=== PATIENT | female | born 2000 | race Caucasian/White ===

== ENCOUNTER 2023-08-11 18:50 | Emergency (ER) | payer BC, SELFPAY ==
[2023-08-11 18:52] VITALS: BP 120/86
[2023-08-11 20:33] LABS: Urine Albumin Negative (Neg - Trace); Urine Bilirubin Negative (Negative); Urine Character Clear (Clear); Urine Color Yellow; Urine Glucose Negative (Negative); Urine Ketone Trace (Negative); Urine Leukocyte 1+ (Negative); Urine Nitrite Negative (Negative); Urine Occult Blood Negative (Negative); Urine Urobilinogen Negative (Neg - 1+)
[2023-08-11 20:50] LABS: Urine White Cell 26-30 /HPF (0-5)
[2023-08-11 20:51] LABS: Urine Red Blood Cell 0-2 /HPF (0-2)
[2023-08-11] MEDS: MACROBID 100 MG PO (21:56)
[2023-08-11] MEDS: DELTASONE 50 MG PO (21:57)
[2023-08-11 21:59] VITALS: BP 121/64
--- NOTE | 2023-08-12 03:27 | ED.GENMED ---
History of Present Illness
General
Chief Complaint: Skin Problem
Source: patient
Exam Limitations: none
Time Seen by Provider: 08/11/23 20:06
Nursing documentation reviewed up to this point in time: agreed with
Travel History
Have you had any contact with someone who has COVID-19?: No
Do you have any symptoms of coronavirus? Fever > 100 degrees, chills, cough, shortness of breath, sore throat, loss of taste or smell, muscle aches, or headache?: No
History of Present Illness
History of Present Illness:
23-year-old female presents to the emergency room for a rash on her back; she also has dysuria. Patient reports that for the past few days she has been having urinary tract infection type symptoms�she describes increased frequency and dysuria. She
says that typically when she gets sick with an infection she will get a skin reaction�she says she was previously diagnosed with erythema nodosum has seen a quill layer and had biopsies done. Was told that it was likely immune related. She says
that over the past 24 hours she has developed these painful lesions which she says initially started out red and pruritic and then developed more painful and feeling bruises. She denies any fevers or chills, abdominal pain, nausea, vomiting, flank
pain, denies any other complaints.
Review of Systems
Review of Systems
All Other Systems: ROS reviewed and negative except as documented in HPI and ROS
Constitutional: Denies fever or chills
Respiratory: Denies trouble breathing
Cardiac: Denies chest pain
ABD/GI: Denies abdominal pain, nausea or vomiting
: Reports dysuria and frequency; Denies flank pain
Musculoskeletal: Denies neck pain or back pain
Skin: Reports rash
Neurological: Denies headache
Phy Exam
Physical Exam
Physical Exam:
General: Awake, alert, oriented x3; no acute distress
Head: Normocephalic, atraumatic
Eyes: Conjunctiva normal
Throat: Airway intact, handling secretions
Neck: Trachea midline, supple without meningismus
Lungs: Clear to auscultation bilaterally, no wheezing, rales, rhonchi
Heart: Regular rate and rhythm, no murmurs, gallops, or rubs
Abd: Soft, non distended, nontender
Neuro: No gross deficits
Skin: Patient has several rounds erythematous blanching well-demarcated and slightly tender lesions which are not raised on the back also has 1 on the abdominal wall; no rash on the palms or soles
Extremities: Warm and well-perfused
Scores
Heart Failure Risk
Heart Failure Risk Score: Not Applicable
Heart Score for Chest Pain Patients
STEMI patient?: Not applicable
Withdrawal Assessment of Alcohol
Withdrawal Assessment Completed?: Not applicable
Course
Orders/Labs/Results
Orders:
Orders
08/11/23 20:09
Urine Microscopic Reflex Cult Urgent
Urine Reflex Culture from UA [Urinalysis Reflex To Culture] Urgent
Date Specimen was Collected: 08/11/23
Time Specimen was Collected: 20:08
Urine Culture Urgent
CARRIE Source: U
Specimen Description:
Date Specimen was Collected: 08/11/23
Time Specimen was Collected: 20:08
08/11/23 21:39
Nitrofurantoin Monohydrate [Macrobid] 100 mg PO NOW STA
Prednisone [Deltasone] 50 mg PO NOW STA
Abnormal Lab Results
08/11/23
20:09
Urine Ketones Trace A
(Negative)
Leukocyte Esterase Rfl 1+ A
(Negative)
Urine WBC (Reflex) 26-30 A /HPF
(0-5)
Vital Signs
Initial and Last Documented VS:
Initial Vital Signs
Temp Pulse Resp BP Pulse Ox
37.5 C 94 18 120/86 96
08/11/23 18:52 08/11/23 18:52 08/11/23 18:52 08/11/23 18:52 08/11/23 18:52
Last Documented Vital Signs
Temp Pulse Resp BP Pulse Ox
37.5 C 79 20 121/64 99
08/11/23 18:52 08/11/23 21:59 08/11/23 21:59 08/11/23 21:59 08/11/23 21:59
MDM/Problems Addressed
Differential Diagnosis Includes:
Urinary symptoms: UTI, interstitial nephritis, hyperglycemia
Rash: Erythema nodosum, erythema multiform
MDM/Problems Addressed:
23-year-old female presents for evaluation of rash in the setting of recent urinary symptoms. She says she has previously been diagnosed with erythema nodosum and that this is her normal presentation in the setting of infection. We sent a
urinalysis which does show pyuria although no bacteria and many squamous cells�given pyuria in the setting of UTI symptoms we will treat for UTI. She says that her erythema nodosum is typically treated with steroids which improves symptoms�will
start on a course of steroids. Stable for discharge to follow-up with her usual doctor.
*Pulse Oximetry
Patient hypoxic: no
*Critical Care Note
Total Time (30-74mins, 75-104mins- exclusive of procedures): Not Applicable
Data Reviewed
Source: patient
ED Attending Note
-
Portions of this chart may have been created with voice recognition software.� Occasional wrong word or��sound alike� substitutions may have occurred due to the inherent limitations of voice recognition software.
Discharge Plan
Departure
Patient Disposition: Home (Routine Discharge)
Date of Disposition: 08/11/23
Time of Disposition: 21:41
Patient with high blood pressure during this ER visit?: No
Discharge Problem:
UTI (urinary tract infection), Rash
Instructions: Erythema nodosum, Urinary Tract Infection, Adult ED
Prescriptions:
New
nitrofurantoin monohyd/m-cryst [Macrobid] 100 mg capsule
100 mg PO BID 5 Days Qty: 10 0RF
prednisone 10 mg Tablet
See Rx Instructions .ROUTE .COMPLEX Qty: 45 0RF
Rx Instructions:
Take By Mouth:
50 mg daily x3 days, 40 mg daily x3 days,
30 mg daily x3 days, 20 mg daily x3 days,
10 mg daily x3 days
Referrals:
UNKNOWN - PT DOES,NOT KNOW [Family Provider] -
Activity Restrictions/Additional Instructions:
Thank you for visiting the Emergency Department at [facility].
1. Please schedule a follow up appointment as directed. Call first thing tomorrow morning to make an appointment.
2. If indicated, please take your medications as instructed and indicated on discharge paperwork.
3. If any of your symptoms do not improve, or persist, or become more severe within 6-12 hours, please return to the emergency department for further care.
4. Please return to the emergency department if you develop a headache, neck pain/stiffness, fever greater than 100.4F, chest pain, shortness of breath, persistent nausea, vomiting, slurred speech, difficulty walking, numbness/tingling, weakness,
signs of infection or any other symptoms that are worrisome to you.
Please call [phone] if you have any questions.
Interventions
Interventions:
*Risk Screen - Suicide Last Done: 08/11/23 18:52
*General Assessment Last Done: 08/11/23 18:52
*Neglect/Abuse Screening Last Done: 08/11/23 18:52
ED- Fall Risk Assessment Last Done: 08/11/23 18:52
*ED COVID-19 Vaccine History Last Done: 08/11/23 18:52
*Nursing Disposition Last Done: 08/11/23 21:59
ED-Skin Assessment Last Done: 08/11/23 20:05
Discharge Date and Time
Discharge Date/Time: 08/11/23 22:02
Print Language: WOLOF
== END 2023-08-11 22:02 | disposition home or self-care (01) ==
LOC: EMR 18:50
PROVIDERS: EMERGENCY PHYSICIAN Emergency Medicine
DX: N39.0 Urinary tract infection, site not specified (principal); R21 Rash and other nonspecific skin eruption
CPT/HCPCS: 99283; 81003; 81015; 87086